=== PATIENT | male | born 1980 | race Caucasian/White ===

== ENCOUNTER 2017-01-03 11:10 | Emergency (ER) | payer BC ==
[2017-01-03 11:37] VITALS: BP 122/71
--- NOTE | 2017-01-03 12:30 | RAD ---
Indication: Nontraumatic RIGHT foot and heel pain. Comparison: No relevant prior exams available on the [facility] for comparison. Technique: AP, lateral, and oblique views RIGHT foot. 4 dedicated views of the RIGHT hindfoot. Report: Normal articular alignment. Negative for stress reaction or fracture. Mild osteophytosis at the talocrural joint and first metatarsal phalangeal joint. Moderate first metatarsal phalangeal joint space narrowing. Small os peroneum accessory ossicle. Small Achilles tendon insertion bone spur. Unremarkable soft tissue contours. IMPRESSION: 1. 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 2. Small Achilles tendon insertion bone spur. Correlate for potential insertional Achilles tendinopathy.
--- NOTE | 2017-01-03 12:30 | RAD ---
Indication: Nontraumatic RIGHT foot and heel pain. Comparison: No relevant prior exams available on the [facility] for comparison. Technique: AP, lateral, and oblique views RIGHT foot. 4 dedicated views of the RIGHT hindfoot. Report: Normal articular alignment. Negative for stress reaction or fracture. Mild osteophytosis at the talocrural joint and first metatarsal phalangeal joint. Moderate first metatarsal phalangeal joint space narrowing. Small os peroneum accessory ossicle. Small Achilles tendon insertion bone spur. Unremarkable soft tissue contours. IMPRESSION: 1. 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 2. Small Achilles tendon insertion bone spur. Correlate for potential insertional Achilles tendinopathy.
--- NOTE | 2017-01-03 12:57 | UC ---
Lower Extremity/Ankle HPI - HPI Summary HPI Summary: TWO DAYS OF RIGHT HEEL PAIN. NO KNOWN INJURY. 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 NO REDNESS. NO HISTORY OF GOUT. NO FEVER. - History of Current Complaint Hx Obtained From: Patient Onset/Duration: Sudden Onset, Lasting Days, Worse Since - PROGRESSIVE Severity Initially: Mild Severity Currently: Mild Aggravating Factor(s): Standing, Ambulation Alleviating Factor(s): Rest, Elevation, Ice Able to Bear Weight: Yes - WITH RIGHT HEEL PAIN - Risk Factors Gout Risk Factors: Negative DVT Risk Factors: Negative Septic Arthritis Risk Factor: Negative <Isaias Umanzor - Last Filed: 01/03/17 12:48> <Hiral Corral - Last Filed: 01/03/17 13:50> - History of Current Complaint Chief Complaint: UCLowerExtremity Stated Complaint: RT FOOT HEEL PAIN Time Seen by Provider: 01/03/17 11:39 - Allergies/Home Medications Allergies/Adverse Reactions: Allergies Allergy/AdvReac Type Severity Reaction Status Date / Time No Known Allergies Allergy Verified 03/21/14 13:34 PMH/Surg Hx/FS Hx/Imm Hx Previously Healthy: Yes - Surgical History Surgical History: Yes Surgery Procedure, Year, and Place: eye. sinus - Family History Known Family History: Positive: Other - FATHER GOUT - Social History Occupation: Employed Full-time Lives: With Family Alcohol Use: None Substance Use Type: None Smoking Status (MU): Former Smoker When Did the Patient Quit Smoking/Using Tobacco: 12-13 years ago <Isaias Umanzor - Last Filed: 01/03/17 12:48> Review of Systems Constitutional: Negative Skin: Negative Eyes: Negative ENT: Negative Respiratory: Negative Cardiovascular: Negative Gastrointestinal: Negative Genitourinary: Negative Motor: Negative Neurovascular: Negative Musculoskeletal: Arthralgia - RIGHT HEEL, Myalgia - RIGHT HEEL Neurological: Negative Psychological: Negative All Other Systems Reviewed And Are Negative: Yes <Isaias Umanzor - Last Filed: 01/03/17 12:48> Physical Exam Triage Information Reviewed: Yes Appearance: Well-Appearing, No Pain Distress, Well-Nourished Vital Signs: Initial Vital Signs Temp 99 F 01/03/17 11:35 Pulse 78 01/03/17 11:35 Resp 16 01/03/17 11:35 BP 122/71 01/03/17 11:35 Pulse Ox 100 01/03/17 11:35 Vital Signs Reviewed: Yes Eye Exam: Normal ENT Exam: Normal ENT: Positive: Normal ENT inspection, Hearing grossly normal, TMs normal Dental Exam: Normal Neck exam: Normal Neck: Positive: Supple, Nontender, No Lymphadenopathy Respiratory Exam: Normal Respiratory: Positive: Chest non-tender, Lungs clear, Normal breath sounds, No respiratory distress, No accessory muscle use Cardiovascular Exam: Normal Cardiovascular: Positive: RRR, No Murmur, Pulses Normal Abdominal Exam: Normal Musculoskeletal: Positive: Strength Intact, ROM Intact, No Edema, Other: - ACHILLES INTACT, HEEL TENDER TO PALPATION Neurological Exam: Normal Psychological Exam: Normal Skin Exam: Normal <Isaias Umanzor - Last Filed: 01/03/17 12:48> Vital Signs: Initial Vital Signs Temp 99 F 01/03/17 11:35 Pulse 78 01/03/17 11:35 Resp 16 01/03/17 11:35 BP 122/71 01/03/17 11:35 Pulse Ox 100 01/03/17 11:35 <Hiral Corral - Last Filed: 01/03/17 13:50> Lower Extremity Course/Dx - Differential Dx/Diagnosis Differential Diagnosis/HQI/PQRI: Fracture (Closed), Sprain, Strain, Tendonitis Provider Diagnoses: RIGHT ACHILLES TENDONITIS; BONE SPUR AT RIGHT ACHILLES TENDON INSERTION <Isaias Umanzor - Last Filed: 01/03/17 12:48> Discharge <Isaias Umanzor - Last Filed: 01/03/17 12:48> <Hiral Corral - Last Filed: 01/03/17 13:50> - Discharge Plan Condition: Stable Disposition: HOME Patient Education Materials: Achilles Tendinitis (ED) Referrals: Derrick Zepeda MD [Primary Care Provider] - Frances Gonzalez MD [Medical Doctor] - Attestation Statement User Type: Provider - I was available for consult. This patient was seen by the HEATHER. The patient was not presented to, seen by, or examined by me. -Binta <Hiral Corral - Last Filed: 01/03/17 13:50>
== END 2017-01-03 12:49 | disposition home or self-care (01) ==
LOC: UCEAST 11:10
DX: M76.61 Achilles tendinitis, right leg (principal); Z87.891 Personal history of nicotine dependence
CPT/HCPCS: 99211; G0463

== ENCOUNTER 2017-02-24 16:03 | Emergency (ER) | payer BC ==
[2017-02-24 16:26] VITALS: BP 130/76
--- NOTE | 2017-02-24 16:48 | RAD ---
INDICATION: Pain and tenderness distal right ulna. TECHNIQUE: 3 views of the right wrist were obtained. FINDINGS: The bones are in normal alignment. No fracture is seen. Joint spaces appear maintained. IMPRESSION: NO EVIDENCE FOR FRACTURE.
--- NOTE | 2017-02-26 23:47 | UC ---
Geovanny Batista Benjamin, scribed for Fernando House MD on 02/24/17 at 1637 . Hand/Wrist HPI - HPI Summary HPI Summary: 36yo male c/o right wrist pain for 2 weeks without any apparent trauma. Pt states rotating, lifting, and making a fist makes his right wrist painful. Denies any elbow pain. No tingling or numbness in fingers. - History Of Current Complaint Chief Complaint: UCUpperExtremity Stated Complaint: WRIST INJURY Time Seen by Provider: 02/24/17 16:27 Hx Obtained From: Patient Onset/Duration: Gradual Onset, Lasting Weeks - 2 weeks, Still Present Severity Initially: Moderate Severity Currently: Moderate Pain Intensity: 5 Pain Scale Used: 0-10 Numeric Character Of Pain: Throbbing Aggravating Factor(s): Movement, Internal/External Rotation, Abduction, Adduction, Twisting Alleviating: Nothing Associated Signs And Symptoms: Positive: Negative. Negative: Numbness/Tingling - Allergies/Home Medications Allergies/Adverse Reactions: Allergies Allergy/AdvReac Type Severity Reaction Status Date / Time No Known Allergies Allergy Verified 03/21/14 13:34 PMH/Surg Hx/FS Hx/Imm Hx Previously Healthy: Yes - denies significant medical hx - Surgical History Surgical History: Yes Surgery Procedure, Year, and Place: eye. sinus - Family History Known Family History: Positive: Other - FATHER GOUT - Social History Occupation: Employed Full-time Lives: Alone Alcohol Use: None Substance Use Type: None Smoking Status (MU): Former Smoker When Did the Patient Quit Smoking/Using Tobacco: 12-13 years ago Review of Systems Constitutional: Negative Skin: Negative Eyes: Negative ENT: Negative Respiratory: Negative Cardiovascular: Negative Gastrointestinal: Negative Genitourinary: Negative Motor: Negative Neurovascular: Negative Musculoskeletal: Arthralgia - right wrist pain Neurological: Negative Psychological: Negative All Other Systems Reviewed And Are Negative: Yes Physical Exam Triage Information Reviewed: Yes Appearance: Well-Appearing, No Pain Distress, Well-Nourished Vital Signs: Initial Vital Signs Temp 99.2 F 02/24/17 16:24 Pulse 74 02/24/17 16:24 Resp 18 02/24/17 16:24 BP 130/76 02/24/17 16:24 Pulse Ox 100 02/24/17 16:24 Vital Signs Reviewed: Yes Eye Exam: Normal ENT: Positive: Normal ENT inspection, Hearing grossly normal Neck: Positive: Supple, Nontender Respiratory: Positive: Lungs clear, Normal breath sounds, No respiratory distress Cardiovascular: Positive: RRR, No Murmur Abdomen Description: Positive: Nontender, Soft Bowel Sounds: Positive: Present Musculoskeletal: Positive: Strength Intact, ROM Intact, Other: - Good pulse, good capillary refills. No neurological deficits. Full ROM. Tenderness with distal ulnar on the medial aspect. Pain with right wrist adduction and abduction. Neurological: Positive: Muscle Tone Normal Psychological: Positive: Age Appropriate Behavior Diagnostics - Radiology WRIST XR Xray Interpretation: No Acute Changes - IMPRESSION: NO EVIDENCE FOR FRACTURE. Radiology Interpretation Completed By: Radiologist Hand/Wrist Course/Dx - Course Course Of Treatment: Reviewed pts medication and allergy lists. Blood pressure noted. - Differential Dx/Diagnosis Provider Diagnoses: RT WRIST TENDONITIS Discharge - Discharge Plan Condition: Stable Disposition: HOME Patient Education Materials: Tendinitis (ED) Referrals: Derrick Zepeda MD [Primary Care Provider] - Additional Instructions: FOLLOW UP WITH YOUR DOCTOR. GET RE CHECKED FOR ANY WORSENING OF YOUR CONDITION OR QUESTIONS OR CONCERNS. The documentation as recorded by the Geovanny whitfield Benjamin accurately reflects the service I personally performed and the decisions made by me, Fernando House MD.
== END 2017-02-24 17:02 | disposition home or self-care (01) ==
LOC: UCEAST 16:03
DX: M65.831 Other synovitis and tenosynovitis, right forearm (principal); Z87.891 Personal history of nicotine dependence
CPT/HCPCS: 99212; G0463

== ENCOUNTER 2017-09-17 16:20 | Emergency (ER) | payer BC ==
[2017-09-17 17:02] VITALS: BP 122/78
--- NOTE | 2017-09-17 17:04 | UC ---
Throat Pain/Nasal Marko HPI - HPI Summary HPI Summary: Pt presents with sinus pain/pressure/congestion and post nasal drip for the last 2.5 weeks. Over the last 3-4 days he has developed a dry cough and felt the pressure increase to give him a frontal headache. He tells me that he has a history of two sinus surgeries and polyps. Has not been taking anything OTC. Denies fever, chills, sore throat, SOB, chest pain, abdominal pain. - History of Current Complaint Chief Complaint: UCGeneralIllness Stated Complaint: SINUS COMPLAINT Time Seen by Provider: 09/17/17 17:03 Hx Obtained From: Patient Onset/Duration: Gradual Onset Severity: Moderate Pain Intensity: 4 Pain Scale Used: 0-10 Numeric Cough: Nonproductive - Allergies/Home Medications Allergies/Adverse Reactions: Allergies Allergy/AdvReac Type Severity Reaction Status Date / Time No Known Allergies Allergy Verified 09/17/17 16:55 PMH/Surg Hx/FS Hx/Imm Hx Previously Healthy: Yes - Surgical History Surgical History: Yes Surgery Procedure, Year, and Place: eye surgery 1999. sinus polyp surgery 2012 - Family History Known Family History: Positive: Other - FATHER GOUT - Social History Occupation: Employed Full-time Lives: With Family Alcohol Use: None Substance Use Type: None Smoking Status (MU): Former Smoker When Did the Patient Quit Smoking/Using Tobacco: 12-13 years ago Review of Systems Constitutional: Negative Skin: Negative Eyes: Negative ENT: Nasal Discharge, Sinus Congestion, Sinus Pain/Tenderness Respiratory: Cough Cardiovascular: Negative Gastrointestinal: Negative Neurological: Negative Psychological: Negative All Other Systems Reviewed And Are Negative: Yes Physical Exam - Summary Physical Exam Summary: GENERAL: NAD. WDWN HEENT: NC/AT. Conjunctiva clear without inflammation or discharge. TMs intact , no bulging, erythema, or edema. Nasal mucosa mildly swollen and erythematous with yellow discharge. TTP maxillary and frontal sinus. Posterior oropharynx without exudates, erythema, or tonsillar enlargement. Uvula midline. NECK: Supple without lymphadenopathy CHEST: CTAB. No r/r/w. No accessory muscle use. Breathing comfortably and in no distress. CV: RRR. Without m/r/g. Pulses intact. SKIN: No rash or erythema noted. NEURO: Alert. CN II-XII grossly intact. PSYCH: Age appropriate behavior. Triage Information Reviewed: Yes Vital Signs: Initial Vital Signs Temp 98.3 F 09/17/17 16:56 Pulse 69 09/17/17 16:56 Resp 18 09/17/17 16:56 BP 122/78 09/17/17 16:56 Pulse Ox 98 09/17/17 16:56 Throat Pain/Nasal Course/Dx - Course Course Of Treatment: Sinusitis - Differential Dx/Diagnosis Provider Diagnoses: Sinusitis Discharge - Discharge Plan Condition: Stable Disposition: HOME Prescriptions: Amoxicillin/Clavulanate TAB* [Augmentin TAB 875*] 875 mg PO BID #20 tab Patient Education Materials: Sinusitis (ED) Referrals: Derrick Zepeda MD [Primary Care Provider] - Additional Instructions: If you develop a fever, shortness of breath, chest pain, new or worsening symptoms - please call your PCP or go to the ED.
== END 2017-09-17 17:14 | disposition home or self-care (01) ==
LOC: UCEAST 16:20
DX: J32.9 Chronic sinusitis, unspecified (principal); Z87.891 Personal history of nicotine dependence
CPT/HCPCS: 99212; G0463

== ENCOUNTER 2019-05-25 17:02 | Emergency (ER) | payer BC ==
[2019-05-25] MEDS ORDERED: Diazepam TAB(*) 5 MG PO ONE (17:16)
[2019-05-25] MEDS ORDERED: Ketorolac INJ* 30 MG/ML 1 ML VIAL IM ONE (17:16)
--- NOTE | 2019-05-25 17:16 | ED ---
Back Pain - HPI Summary HPI Summary: Patient complains of sudden onset mid back pain this afternoon. Patient states he was sitting chair and landed back and had sudden onset sharp pain. Patient states he was unable to walk. Denies prior history of same. Denies loss of sensation or function, change in BM or urine. Denies any other symptoms, pain or injury. Medical history is none. - History of Current Complaint Stated Complaint: BACK PAIN PER EMS Hx Obtained From: Patient Onset/Duration: Sudden Onset, Lasting Hours Onset/Duration: Started Hours Ago Timing: Constant Severity Initially: Severe Severity Currently: Moderate Pain Intensity: 6 Pain Scale Used: 0-10 Numeric Character: Sharp Aggravating Symptom(s): Movement, Walking Alleviating Symptom(s): Position Associated Signs And Symptoms: Positive: Negative - Allergies/Home Medications Allergies/Adverse Reactions: Allergies Allergy/AdvReac Type Severity Reaction Status Date / Time No Known Allergies Allergy Verified 09/17/17 16:55 Home Medications: Home Medications Bupropion XL* [Wellbutrin XL *] 150 mg PO DAILY 05/25/19 [History Confirmed 07/01] PMH/Surg Hx/FS Hx/Imm Hx Endocrine/Hematology History: Denies: Hx Anticoagulant Therapy Cardiovascular History: Denies: Hx Pacemaker/ICD History: Denies: Hx Dialysis Sensory History: Denies: Hx Eye Prosthesis Opthamlomology History: Denies: Hx Legally Blind EENT History: Denies: Hx Deafness - Surgical History Surgery Procedure, Year, and Place: eye surgery 1999. sinus polyp surgery 2012 Infectious Disease History: No Infectious Disease History: Denies: Hx Clostridium Difficile, Hx Hepatitis, Hx Human Immunodeficiency Virus (HIV), Hx of Known/Suspected MRSA, Hx Shingles, Hx Tuberculosis, Hx Known/ Suspected VRE, Hx Known/Suspected VRSA, History Other Infectious Disease, Traveled Outside the [place] in Last 30 Days - Family History Known Family History: Positive: Other - FATHER GOUT - Social History Alcohol Use: None Substance Use Type: Reports: None Smoking Status (MU): Former Smoker Review of Systems Constitutional: Negative Eyes: Negative ENT: Negative Cardiovascular: Negative Respiratory: Negative Gastrointestinal: Negative Genitourinary: Negative Musculoskeletal: Other Skin: Negative Neurological: Negative Psychological: Normal All Other Systems Reviewed And Are Negative: Yes Physical Exam - Summary Physical Exam Summary: Tenderness along bilateral paraspinal muscles of T-spine. No bony point tenderness. No ecchymosis, erythema, deformity, swelling, masses noted to spine. PMS intact distally in bilateral lower extremities. Triage Information Reviewed: Yes Vital Signs On Initial Exam: Initial Vitals Temp Pulse Resp BP Pulse Ox 97.9 F 74 18 121/76 96 05/25/19 17:08 05/25/19 17:08 05/25/19 17:08 05/25/19 17:08 05/25/19 17:08 Vital Signs Reviewed: Yes Appearance: Positive: Well-Appearing Skin: Positive: Warm Head/Face: Positive: Normal Head/Face Inspection Eyes: Positive: Normal Neck: Positive: Supple Respiratory/Lung Sounds: Positive: Clear to Auscultation Cardiovascular: Positive: Normal Abdomen Description: Positive: Nontender Musculoskeletal: Positive: Normal Neurological: Positive: Normal Psychiatric: Positive: Normal AVPU Assessment: Alert - Jessica Coma Scale Best Eye Response: 4 - Spontaneous Best Motor Response: 6 - Obeys Commands Best Verbal Response: 5 - Oriented Coma Scale Total: 15 Procedures - Sedation Patient Received Moderate/Deep Sedation with Procedure: No Diagnostics - Vital Signs Vital Signs Temp Pulse Resp BP Pulse Ox 05/25/19 17:08 97.9 F 74 18 121/76 96 - Laboratory Lab Statement: Any lab studies that have been ordered have been reviewed, and results considered in the medical decision making process. Back Pain Course/Dx - Course Course Of Treatment: Patient complains of sudden onset mid back pain this afternoon. Patient states he was sitting chair and landed back and had sudden onset sharp pain. Patient states he was unable to walk. Denies prior history of same. Denies loss of sensation or function, change in BM or urine. Denies any other symptoms, pain or injury. Medical history is none. Vital signs within normal limits. Patient's symptoms significantly improved with Valium 5 mg by mouth, Toradol 30 mg IM and lidocaine patch. Patient currently ambulatory on reexam. Rx for Valium 5 mg by mouth and lidocaine patches. - Diagnoses Provider Diagnoses: Acute back pain Discharge ED - Sign-Out/Discharge Documenting (check all that apply): Patient Departure - Discharge Plan Condition: Stable Disposition: HOME Prescriptions: Diazepam TAB(*) [Valium TAB(*)] 5 mg PO TID PRN 2 Days #6 tab MDD 3 tabs PRN Reason: Spasms Lidocaine PATCH 5%* [Lidoderm 5% Patch*] 1 patch TRANSDERM DAILY 4 Days #4 patch Patient Education Materials: Muscle Spasm (ED) Referrals: Derrick Zepeda MD [Primary Care Provider] - Additional Instructions: Take Valium as directed for muscle spasm. Also take ibuprofen 800 mg 3 times a day for 2 days. Use lidocaine patch for 12 hours and then remove. Return to the ED for any worsening symptoms. - Billing Disposition and Condition Condition: STABLE Disposition: Home
--- OUTSIDE RECORDS SUMMARY | 2019-05-25 17:35 | XMS REPORT | Continuity of Care Document ---
:1980 External Reference #:[id number] Author Name Juno Coronel MD (transmitted by agent of provider Esther Garnett) Address [address] [place] [address] Care Team Providers Name Role Phone Derrick Zepeda MD - Family Care Team Information Manager Diabetes [phone] Medicine Problems Description No Information Available Social History Type Date Description Comments Sex Unknown Smokeless Tobacco Never Used Smokeless Tobacco ETOH Use Denies alcohol use Tobacco Use Start: Unknown End: Patient is a former smoker QUIT 2000 Unknown Recreational Drug Use Denies Drug Use Smoking Status Reviewed: 11/19/18 Patient is a former smoker QUIT 2000 Allergies, Adverse Reactions, Alerts Description No Known Drug Allergies Medications Active Medications SIG Qnty Indications Ordering Provider Date Lactaid Fast Act 1 tab by mouth 90tabs R12 Juno Coronel, 09/10/2018 three times a day 9000Unit Tablets with meals Melatonin 1 by mouth at Unknown 10mg Capsules bedtime as needed insomnia as needed Prevacid 1 by mouth every Unknown 30mg Capsules day DR Daily Mens Health 1 po daily Unknown Formula Tablets Wellbutrin SR 1 tab by mouth Unknown 100mg every morning Tablets ER 12HR Immunizations Description No Information Available Vital Signs Date Vital Result Comment 11/19/2018 2:34pm BP Systolic Sitting Left Arm 118 mmHg BP Diastolic Sitting Left Arm 80 mmHg Heart Rate 92 /min Respiratory Rate 16 /min Height 73 inches 6'1" Weight 286.00 lb BMI (Body Mass Index) 37.7 kg/m2 BSA (Body Surface Area) 2.50 m2 [place] body weight in kilograms 83 kg O2 % BldC Oximetry 97 % Ra 09/10/2018 8:51am BP Systolic Sitting Left Arm 120 mmHg BP Diastolic Sitting Left Arm 84 mmHg Heart Rate 96 /min Respiratory Rate 16 /min Height 73 inches 6'1" Weight 282.00 lb BMI (Body Mass Index) 37.2 kg/m2 BSA (Body Surface Area) 2.49 m2 [place] body weight in kilograms 83 kg O2 % BldC Oximetry 96 % Ra Results Description No Information Available Procedures Description No Information Available Medical Devices Description No Information Available Encounters Description No Information Available Assessments Description No Information Available Plan of Treatment 11/19/2018 - Juno Coronel [id number] Duodenitis without bleedingComments:no [id number] Diaphragmatic hernia without obstruction or gangreneComments:small hiatal herniadiscussed TIFFollow up:colonoscopy in 8 [id number] Gastro- esophageal reflux disease with esophagitisComments:continue PPIlose weight Functional Status Description No Information Available Mental Status Description No Information Available Referrals Description No Information Available
[2019-05-25] MEDS ORDERED: Lidocaine PATCH 5%* 1 PATCH TRANSDERM SCH (18:00)
[2019-05-25 19:41] VITALS: BP 111/77
[2019-05-26] MEDS ORDERED: Lidocaine Patch REMOVE* 1 NOTE MISC PATCH OFF SCH (06:00)
== END 2019-05-25 19:40 | disposition home or self-care (01) ==
LOC: ED 17:02
DX: M54.9 Dorsalgia, unspecified (principal); Z87.891 Personal history of nicotine dependence; Z79.899 Other long term (current) drug therapy
CPT/HCPCS: 96372; 99282; A9270-GY; J1885